=== PATIENT | male | born 1960 ===

== ENCOUNTER 2017-04-13 05:39 | Outpatient (CLI) | payer BC ==
[~2017-04-13] VITALS: Ht 188 cm; Wt 124.3 kg
[2017-04-13] MEDS ORDERED: MELO15TA39 PO (09:49)
[2017-04-13] MEDS ORDERED: AMLO10TA2 PO (09:49)
== END 2017-04-13 10:15 ==
LOC: PREOP 05:39
PROVIDERS: ATTEND Podiatrist
DX: Z01.818 Encounter for other preprocedural examination (principal); M19.172 Post-traumatic osteoarthritis, left ankle and foot